=== PATIENT | male | born 1985 | race Caucasian/White ===

== ENCOUNTER 2020-07-12 18:13 | Emergency (ER) | payer BC ==
[2020-07-12 18:20] VITALS: TEMP 98.8
[2020-07-12] MEDS ORDERED: HYDROmorphone 0.5 MG/0.5 ML SYRINGE IM STA (18:31)
--- NOTE | 2020-07-12 18:34 | ED ---
General Adult HPI - General Chief complaint: Recheck/Abnormal Lab/Rx Stated complaint: Post op bleeding Time Seen by Provider: 07/12/20 18:25 Source: patient Mode of arrival: ambulatory Limitations: no limitations - History of Present Illness Initial comments: Dictation was produced using [employer] dictation software. please excuse any grammatical, word or spelling errors. This patient was cared for during a federal and state declared state of emergency secondary to Covid 19 Chief Complaint: 35-year-old male presents with postoperative left hip pain History of Present Illness: And 35-year-old male he states that today he had a cord decompression surgery for necrotic tip of his left hip today at [place]. Today he noted that there was saturation of blood on his bandage. Patient states that he has significant pain to the area. Patient reports that the pain is constant and located to the surgical site. Patient also complains of mild sore throat. He did report being intubated for the procedure. States that the pain initially started in his throat however feels that his chest. He has had no coughing or shortness of breath. Patient initially tried to go to the emergency department. However didn't want to wait for 2 hours to be seen The ROS documented in this emergency department record has been reviewed and confirmed by me. Those systems with pertinent positive or negative responses have been documented in the HPI. All other systems are other negative and/or noncontributory. PHYSICAL EXAM: General Impression: Alert and oriented x3, not in acute distress, no respiratory distress, normal phonia HEENT: Normocephalic atraumatic, extra-ocular movements intact, pupils equal and reactive to light bilaterally, mucous membranes moist. Oropharynx: No erythema Cardiovascular: Heart regular rate and rhythm Chest: Able to complete full sentences, no retractions, no tachypnea Abdomen: abdomen soft, non-tender, non-distended, no organomegaly Musculoskeletal: Pulses present and equal in all extremities, no peripheral edema Left hip: Managed to the left hip with mild saturation of bandaging material. There is no gross examination.. Surgical site appears to be nonerythematous and non-ecchymotic. Motor: no focal deficits noted Neurological: CN II-XII grossly intact, no focal motor or sensory deficits noted Skin: Intact with no visualized rashes Psych: Normal affect and mood ED course: 35 yo M presents with postoperative left hip pain and throat pain. He did have a procedure done today. Vital signs upon arrival are within acceptable limits. X-ray looks unremarkable. Chest x-ray is not acute. Soft tissue x-ray shows soft tissue swelling. Vertebral space at the level of C1. Patient is well-appearing is not showing any swallowing difficulties or breathing difficulties. Patient will be discharged. Patient with Decadron for the throat swelling. Patient advised follow-up with primary surgeon regarding postoperative pain. - Related Data Allergies Allergy/AdvReac Type Severity Reaction Status Date / Time azithromycin Allergy Unknown Verified 07/12/20 18:22 cephalexin [From Keflex] Allergy Unknown Verified 07/12/20 18:22 Cephalosporins Allergy Unknown Verified 07/12/20 18:22 doxycycline Allergy Unknown Verified 07/12/20 18:22 glucose [From Gammagard S/D] Allergy Unknown Verified 07/12/20 18:22 glycine [From Gammagard S/D] Allergy Unknown Verified 07/12/20 18:22 IgA less than or equal to 50 Allergy Unknown Verified 07/12/20 18:22 mcg/mL [From Gammagard S/D] immune globulin,gamma (IgG) Allergy Unknown Verified 07/12/20 18:22 human [From Gammagard S/D] isosorbide [From Imdur] Allergy Unknown Verified 07/12/20 18:22 levofloxacin [From Levaquin] Allergy Unknown Verified 07/12/20 18:22 Tetracyclines Allergy Unknown Verified 07/12/20 18:22 Review of Systems ROS Statement: Those systems with pertinent positive or pertinent negative responses have been documented in the HPI. ROS Other: All systems not noted in ROS Statement are negative. Past Medical History Past Medical History: Chest Pain / Angina, Deep Vein Thrombosis (DVT), Hyperlipidemia, Hypertension History of Any Multi-Drug Resistant Organisms: None Reported Past Surgical History: Cholecystectomy, Orthopedic Surgery, Tonsillectomy Additional Past Surgical History / Comment(s): core decompression Past Psychological History: Bipolar Smoking Status: Current every day smoker Past Alcohol Use History: None Reported Past Drug Use History: None Reported General Exam Limitations: no limitations Course Vital Signs 07/12/20 18:16 Temperature 98.8 F Pulse Rate 86 Respiratory 18 Rate O2 Sat by Pulse 99 Oximetry Disposition Clinical Impression: Post-op pain Disposition: HOME SELF-CARE Condition: Good Instructions (If sedation given, give patient instructions): Pain Management After Surgery (DC) Is patient prescribed a controlled substance at d/c from ED?: No Referrals: Adrian Epps MD [Primary Care Provider] - 1-2 days Time of Disposition: 19:19
--- NOTE | 2020-07-12 19:12 | XR ---
EXAMINATION TYPE: XR soft tissue neck DATE OF EXAM: 07/12/2020 COMPARISON: NONE HISTORY: Sore throat TECHNIQUE: 3 views FINDINGS: Epiglottis is normal. Subglottic trachea appears normal. There appears to be some thickenin g of the prevertebral soft tissues at the skull base and C1 level. Cervical vertebra have normal alig nment. IMPRESSION: There is soft tissue swelling in the prevertebral tissues at the skull base and C1 level consistent with edema or inflammation. No soft tissue air seen
--- NOTE | 2020-07-12 19:13 | XR ---
EXAMINATION TYPE: XR chest 2V DATE OF EXAM: 07/12/2020 COMPARISON: NONE HISTORY: Sore throat TECHNIQUE: 2 views FINDINGS: Heart and mediastinum are normal. Lungs are clear. Diaphragm is normal. Bony thorax appears normal. There is no sign of pleural effusion. IMPRESSION: Normal chest.
--- NOTE | 2020-07-12 19:15 | XR ---
EXAMINATION TYPE: XR Hip Complete LT DATE OF EXAM: 07/12/2020 COMPARISON: NONE HISTORY: Surgery. Bleeding at the left hip TECHNIQUE: 2 views FINDINGS: There is a single screw in the femoral neck and head. Screw appears in good position within the femoral head. I see no fracture. Sacroiliac joint appears normal. IMPRESSION: No complicating process seen.
[2020-07-12] MEDS ORDERED: dexAMETHasone 4 MG TAB PO STA (19:18)
[2020-07-12 19:35] VITALS: BP 156/93; PULSE 79; RESP 20
== END 2020-07-12 19:35 | disposition home or self-care (01) ==
LOC: EC 18:13
DX: G89.18 Other acute postprocedural pain (principal); M25.552 Pain in left hip; R07.0 Pain in throat; M79.89 Other specified soft tissue disorders; F17.200 Nicotine dependence, unspecified, uncomplicated; Z88.1 Allergy status to other antibiotic agents; Z88.8 Allergy status to other drugs, medicaments and biological substances; Z88.7 Allergy status to serum and vaccine
CPT/HCPCS: 70360; 73502; 71046; 99283; 96372; J8540; J1170